=== PATIENT | male | born 1940 | race Caucasian/White ===

== ENCOUNTER 2016-12-05 12:15 | Emergency (ER) | payer MEDICARE, OTHER ==
[2016-12-05] MEDS ORDERED: ALBUTEROL/IPRATROPIUM 2.5/0.5 MG 3 ML/EACH DOSE ONE (13:22)
[2016-12-05 13:39] LABS: ABSOLUTE NEUTROPHIL COUNT 10.8 K/mm3 (1.8-7.7); BASO # 0.1 K/mm3 (0.0-0.2); BASO % 0.7 % (0.2-1.0); EOS # 0.1 (0.0-0.5); EOS % 0.7 % (0.9-2.9); HEMATOCRIT 43.7 % (32.0-52.0); IMM NEUT # 0.3 K/mm3 (0-0.2); IMM NEUT% 1.8 % (0-1); LYMPH # 1.7 (1.0-4.8); LYMPH % 12.2 % (15-45); MEAN CELL VOLUME 92.6 fl (80.0-94.0); MEAN CORPUSCULAR HEMOGLOBIN 29.7 pg (27.0-31.0); MEAN PLATELET VOLUME 9.7 fl (7.4-10.4); MONO # 0.8 (0.0-0.8); NEUT % 78.6 % (43-75); PLATELET COUNT 508 K/mm3 (130-400); RED CELL DISTRIBUTION WIDTH 12.5 % (11.5-14.5)
[2016-12-05 13:59] LABS: ALBUMIN 3.7 gm/dL (3.5-5.7); CALCIUM 9.3 mg/dL (8.6-10.3)
--- NOTE | 2016-12-05 14:14 | RAD ---
CHEST 2 VIEWS HISTORY: Cough and shortness of breath. Frontal and lateral chest radiographs dated 12/05/2016. COMPARISON: None. FINDINGS: LUNG VOLUMES: Hyperinflation. FOCAL AIRSPACE OPACITY: No gross airspace consolidation. Minor reticular opacities peripherally. Coarsened markings. PLEURAL EFFUSION: None. CARDIOMEDIASTINAL SILHOUETTE: Nonenlarged. Minor aortic calcification. PNEUMOTHORAX: None identified. OSSEOUS STRUCTURES: Mild levoconvex curvature of the thoracic spine. UPPER ABDOMEN: Status post cholecystectomy. IMPRESSION: Hyperinflation suggesting obstructive pulmonary disease. Coarsened markings, correlate for bronchitis, atypical/viral infection, or central airways disease. No airspace consolidation is identified. Postcholecystectomy change.
[2016-12-05] MEDS ORDERED: PREDNISONE 20 MG TABLET ONE (14:38)
== END 2016-12-05 15:14 | disposition home or self-care (01) ==
LOC: ED 12:15
DX: J44.1 Chronic obstructive pulmonary disease with (acute) exacerbation (principal); Z88.7 Allergy status to serum and vaccine; Z79.899 Other long term (current) drug therapy

== ENCOUNTER 2017-01-01 12:11 | Emergency (ER) | payer MEDICARE, OTHER ==
[2017-01-01 13:07] LABS: ABSOLUTE NEUTROPHIL COUNT 5.3 K/mm3 (1.8-7.7); BASO # 0.1 K/mm3 (0.0-0.2); BASO % 0.8 % (0.2-1.0); EOS # 0.4 (0.0-0.5); EOS % 4.4 % (0.9-2.9); HEMATOCRIT 42.9 % (32.0-52.0); HEMOGLOBIN 13.6 gm/l (14.0-18.0); IMM NEUT # 0.1 K/mm3 (0-0.2); IMM NEUT% 0.6 % (0-1); LYMPH # 2.7 (1.0-4.8); LYMPH % 29.8 % (15-45); MEAN CELL VOLUME 95.3 fl (80.0-94.0); MEAN CORPUSCULAR HEMOGLOBIN 30.2 pg (27.0-31.0); MEAN CORPUSCULAR HGB CONC 31.7 g/dl (33.0-37.0); MEAN PLATELET VOLUME 11.6 fl (7.4-10.4); MONO # 0.6 (0.0-0.8); MONO % 6.2 % (4-12); NEUT % 58.2 % (43-75); PLATELET COUNT 252 K/mm3 (130-400); RED CELL DISTRIBUTION WIDTH 13.9 % (11.5-14.5)
[2017-01-01 13:11] LABS: ALB/GLOB RATIO 1.4 (>1.0); ALBUMIN 3.9 gm/dL (3.5-5.7); CALCIUM 8.9 mg/dL (8.6-10.3)
--- NOTE | 2017-01-01 13:58 | US ---
DUPLX SCAN VEIN EXT UNI LT COMPARISON: None. HISTORY: Left calf pain and swelling for 3 days. Technique: The veins of the left lower extremity were interrogated with real-time grayscale ultrasound, color Doppler, and spectral Doppler. Vessel compressibility and flow augmentation were assessed. FINDINGS: Deep venous thrombosis: None. Common femoral vein: Normal. Proximal femoral vein: Normal. Saphenous vein junction: Normal. Mid to distal femoral vein: Normal. Popliteal vein: Normal. Peroneal veins: Normal. Posterior tibial veins: Normal. IMPRESSION: 1. There is no evidence of deep venous thrombosis of the left lower extremity. 2. Edema and small fluid collection at site of pain, posterior distal left calf. Cellulitis with 2.4 x 2.2 x 0.3 mm seroma.
== END 2017-01-01 15:03 | disposition home or self-care (01) ==
LOC: ED 12:11
DX: L03.116 Cellulitis of left lower limb (principal)